=== PATIENT | male | born 1965 | race Caucasian/White ===

== ENCOUNTER → 2017-06-20 | Outpatient (CLI) | payer BC ==
[~2017-06-20] MED LIST: OXYC1TAB3 PO
[2017-06-20 09:34] LABS: BASO % 0.6 %; BASO ABS # 0.03 K/uL (0-0.2); EOS % 2.6 %; EOS ABS # 0.12 K/uL (0-0.5); HEMATOCRIT 44.7 % (42-52); LYMPH % 39.4 %; LYMPH ABS # 1.83 K/uL (1.2-3.4); MEAN CELL VOLUME 84.5 fL (80-100); MEAN CORPUSCULAR HEMOGLOBIN 30.2 pg (25-34); MEAN CORPUSCULAR HGB CONC 35.8 g/dl (32-36); MEAN PLATELET VOLUME 8.7 fL (7.4-10.4); MONO ABS # 0.56 K/uL (0.11-0.59); NEUT % 45.4 %; NEUT ABS # 2.11 K/uL (1.4-6.5); PLATELET COUNT 251 K/uL (130-400); RED CELL DISTRIBUTION WIDTH CV 12.8 % (11.5-14.5); WHITE BLOOD COUNT 4.65 K/uL (4.8-10.8)
[2017-06-20 09:50] LABS: ALBUMIN 3.8 gm/dl (3.4-5.0); ALKALINE PHOSPHATASE 57 U/L (45-117); ALT/SGPT 28 U/L (12-78); AST/SGOT 15 U/L (15-37); BLOOD UREA NITROGEN 12 mg/dl (7-18); CALCIUM 9.9 mg/dl (8.5-10.1); CARBON DIOXIDE 27 mmol/L (21-32); CHOLESTEROL 196 mg/dl (0-200); CREATININE 1.11 mg/dl (0.60-1.40); GLUCOSE 94 mg/dl (70-99); LDL CHOLESTEROL CALCULATED 118 mg/dl; POTASSIUM 4.1 mmol/L (3.5-5.1); SODIUM 139 mmol/L (136-145); TOTAL PROTEIN 7.7 gm/dl (6.4-8.2)
== END | disposition home or self-care (01) ==
LOC: C.LAB1850 08:10
PROVIDERS: ATTEND Internal Medicine
DX: Z13.9 Encounter for screening, unspecified (principal); Z12.5 Encounter for screening for malignant neoplasm of prostate